=== PATIENT | male | born 2000 | race Caucasian/White ===

== ENCOUNTER 2024-06-08 20:33 | Emergency (ER) | payer MEDICARE, MEDICAID, SELFPAY ==
--- NOTE | 2024-06-08 20:52 | ED.GENADUL_ITS ---
Discharge Plan Disposition Patient Disposition: Psychiatric Hospital/Unit Condition: Stable Discharge Details Clinical Impression: Suicidal ideations, Hallucinations Primary Care Provider: [facility] ED Provider: Constance López Home Meds and New Rx's Prescriptions: No Action amlodipine 10 mg tablet 10 mg PO DAILY azathioprine 50 mg tablet 200 mg PO DAILY irbesartan 150 mg tablet 150 mg PO DAILY hydroxychloroquine 200 mg tablet 200 mg PO BID HPI General Date/Time Provider Initiated Documentation: 06/08/24 20:33 . HPI Narrative: The patient is a 24-year-old female with a history of lupus, chronic kidney disease who comes emergency department for medical clearance for mental health evaluation. The patient reports that she has been hearing voices and seeing things telling her to hurt herself and other people. Reports today she thought about cutting herself but had not attempted to harm herself or anybody else. Reports that she is having active suicidal thoughts. Denies having any plan and how she is going to carry through. Reports she was encouraged by her partner to call for help which is why she is in the emergency department today. Reports that she has been noncompliant with her medication and takes it sporadically but had taken her medications today. Reports she has had decreased urine output but not new today. Admits also that she has been dizzy on and off but again also not new today. Denies chest pain or shortness of breath. Denies fevers or chills. Denies abdominal pain, nausea or vomiting. Related Data Home Medications ?Medication ?Instructions ?Recorded ?Confirmed amlodipine 10 mg tablet 10 mg PO DAILY 06/08/24 06/08/24 azathioprine 50 mg tablet 200 mg PO DAILY 06/08/24 06/08/24 hydroxychloroquine 200 mg tablet 200 mg PO BID 06/08/24 06/08/24 irbesartan 150 mg tablet 150 mg PO DAILY 06/08/24 06/08/24 Review of Systems Narrative: Review of systems are negative except as mentioned. Exam Narrative Exam Narrative: The patient is in no acute distress. Pupils are round, equal and reactive. Oral mucosal membranes are moist. Heart is regular in rate and rhythm. Lungs are clear to auscultation bilaterally. The abdomen is soft with normal bowel sounds and no tenderness is noted to palpation throughout. No CVA tenderness is noted to palpation bilaterally. No lower extremity edema noted. Medical Decision Making Because of past medical history and poor compliance with medication the patient needs blood work, etc. for medical clearance. Patient agrees to this. Blood work and toxicologic screen are resulted and they are unremarkable. Her creatinine is elevated and I do not have anything old to compare this with but GFR is reassuring. At this point the patient is medically cleared. Quality:SDOH Health Related Social Needs: No Data to Display PFSH All Active Problems (Updated 06/08/24 @ 22:17 by Constance López DO) Hallucinations (Acute) Suicidal ideations (Acute) Social History Smoking/Tobacco Use Status: Current-Occasional Tobacco Type: cigarettes Smoking risk assessment performed?: Yes Alcohol Intake: former Drug use: Never Substance use type: does not use Housing: apartment Do you feel safe at home: Yes Do you feel safe in your relationship?: Yes Additional Social history: fianc? currently incarcerated
[2024-06-08 21:13] LABS: Abs Immature Grans 0.01 10^3/uL (0.0-0.06); Absolute Basophil Count 0.03 10^3/uL (0.0-0.2); Absolute Eosinophil Count 0.14 10^3/uL (0.0-0.7); Absolute Lymphocyte Count 2.31 10^3/uL (1.2-3.4); Absolute Monocyte Count 0.67 10^3/uL (0.1-0.8); Absolute Neutrophil Count 4.22 10^3/uL (1.2-6.7); Basophils % 0.4 %; Eosinophils % 1.9 %; HCT 45.5 % (40.0-50.0); HGB 15.7 g/dL (13.5-17.5); Immature Grans % 0.1 %; Lymphocytes % 31.3 %; MCHC 34.5 % (32.0-36.0); MCV 90 fL (80-95); MPV 9.4 fL (8.0-11.0); Monocytes % 9.1 %; Neutrophils % 57.2 %; Platelet Count 271 10^3/uL (130-400); RBC 5.07 10^6/uL (4.36-5.78); RDW 12.7 % (11.8-14.1); RDW-SD 41.2 fL; WBC 7.38 10^3/uL (4.4-10.8)
[2024-06-08 21:20] VITALS: BP 122/76; PULSE 64; RESP 16; TEMP 36.8; O2SAT 98
[2024-06-08 21:26] LABS: ALT 23 U/L (16-63); AST 17 U/L (15-37); Alkaline Phosphatase 93 U/L (46-116); Anion Gap 9.8 mmol/L (3-11); BUN 16 mg/dL (7-18); Bilirubin, Total 0.56 mg/dL (0.2-1.0); CO2 25.2 mmol/L (21.0-32.0); CREATININE 1.5 mg/dL (0.70-1.30); Calcium 8.7 mg/dL (8.5-10.1); Chloride 107 mmol/L (98-107); Estimated GFR 65.44 (mL/min/1.73m2); Glucose 97 mg/dL (74-106); Potassium 4.2 mmol/L (3.5-5.1); Sodium 142 mmol/L (136-145); Total Protein 7.1 g/dL (6.4-8.2)
[2024-06-08 21:40] LABS: Bilirubin Negative (Negative); Blood Negative (Negative); Clarity Clear (Clear); Glucose Negative (Negative); Ketones Negative (Negative); Leukocyte Esterase Trace (Negative); Nitrite Negative (Negative); Specific Gravity >= 1.030 (1.005-1.025); Urobilinogen 0.2 mg/dL (Up to 0.2); pH 5.5 (5-8)
[2024-06-08 21:44] LABS: Bacteria Few HPF (Negative); C & S Indicated? No/Sq. Contamination; Casts Negative LPF (Negative); Crystals Negative HPF (Negative); Epithelial Cells Moderate HPF (Negative); Mucus Negative (Negative); RBC Negative HPF (0-2)
[2024-06-08 21:48] LABS: *AMPHETAMINES SCREEN URINE Negative (Negative); *BARBITURATES SCREEN URINE Negative (Negative); *BENZODIAZEPINES SCREEN URINE Negative (Negative); Cannabinoids THC Negative (Negative); Cocaine Screen,Urine Negative (Negative); METHADONE URINE SCREEN Negative (Negative); OPIATES URINE SCREEN Negative (Negative)
[2024-06-08 21:55] LABS: ETHANOL BLOOD < 3.0 mg/dL (<10)
[2024-06-08 21:56] LABS: Tricyclic Antidepressants Negative (Negative)
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
--- NOTE | 2024-06-08 23:26 | W.EDPROG ---
Date of service: 06/08/24 Time of Service: 23:26 Medical Decision Making This patient was signed out to me. Please see previous notes for H&P and initial eval. In brief, 24yo transgender woman presenting for SI with plan to OD. Medically cleared, signed out pending voluntary inpatient placement. Ordered serum toxicology given report plan for OD (though pt denies attempt; negative. Overnight appeared to be sleeping; did not wake patient for assessment. Will be signed out to oncoming physician, plan remains as above. Quality:SDOH Health Related Social Needs: No Data to Display Discharge Plan Disposition Patient Disposition: Psychiatric Hospital/Unit Condition: Stable Discharge Details Clinical Impression: Suicidal ideations, Hallucinations Primary Care Provider: [facility] ED Provider: Carlie Gregory Home Meds and New Rx's Prescriptions: No Action amlodipine 10 mg tablet 10 mg PO DAILY azathioprine 50 mg tablet 200 mg PO DAILY irbesartan 150 mg tablet 150 mg PO DAILY hydroxychloroquine 200 mg tablet 200 mg PO BID
[2024-06-08 23:48] LABS: Salicylate < 2.8 mg/dL (<2.8)
[2024-06-08 23:55] LABS: Acetaminophen < 2 ug/mL (10-30)
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
[2024-06-09 07:30] VITALS: BP 128/86; PULSE 82; TEMP 36; O2SAT 99
--- NOTE | 2024-06-09 07:39 | W.EDPROG ---
Date of service: 06/09/24 Time of Service: 07:39 Medical Decision Making Patient seeking voluntary placement for thoughts of self-harm, no reported issues on prior shift, patient currently states she has a history of acid reflux and would like omeprazole which she takes normally, I have ordered for this. Will continue to monitor until safe disposition found. Quality:SDOH Health Related Social Needs: No Data to Display Sign Out Sign Out Data: Sign Out Comment: 24yo MTF transgendered woman presenting with SI, plan to OD. Medically cleared, pending voluntary placement. Last updated by Carlie Gregory MD at 06/09/24 05:36 Discharge Plan Disposition Patient Disposition: Psychiatric Hospital/Unit Condition: Stable Discharge Details Clinical Impression: Suicidal ideations, Hallucinations Primary Care Provider: [facility] ED Provider: Clifford Ugalde [place] Meds and New Rx's Prescriptions: No Action amlodipine 10 mg tablet 10 mg PO DAILY azathioprine 50 mg tablet 200 mg PO DAILY irbesartan 150 mg tablet 150 mg PO DAILY hydroxychloroquine 200 mg tablet 200 mg PO BID
[2024-06-09] MEDS: Omeprazole 20 MG CAPCR PO (07:43)
--- NOTE | 2024-06-09 08:34 | PDOC.CMSAFE ---
Date of service: 06/09/24 Time of Service: 08:34 Care Management Safety Plan Status Status: Voluntary Reason for Wait Reason for Wait: Inpatient Admission (Awaiting safe discharge, seeking inpatient psych treatment ) Safety Plan Safety Plan: VOLUNTARY FOR INPATIENT PSYCHIATRIC STABILIZATION. Patient is appropriate in all interactions since arriving at [facility]; Pt has demonstrated appropriate coping and communication skills, has articulated his or her needs and concerns and is fully engaged during staff interactions. Safety plan has been established with patient, and care team, to adhere to patient goals, identify restrictions based on behavioral status, address nutrition, and determine allowed personal belongings, tools for hygiene and personal care. Determine level of activity including ambulation, level of supervision, visitors, and determine privileges based on behaviors and level of engagement by pt. CM coordinated interdepartmental huddle with RN Alarm Adjuster, primary RN and [facility] clinician. Christy has been appropriate in interaction and is pending inpatient psych treatment at an accepting facility. SAFETY PLAN: 1. Will remain on suicide precautions. In Paper Clothes 2. Will remain in room under direct supervision of one-on-one staff at all times provided by [employer]; CASIE, SENIOR MECHANICAL PROJECT MANAGER manager labor delivery. 3. May have paper cups, plates, finger foods as well as a cardboard spoon with which to eat meals. 4. Follow [facility] Management of the Admitted Behavioral Health Patient policy. 5. Comfort bath system only, shower permitted with escort at RN discretion. 6. No personal belongings-soft items permitted at RN discretion. 7. Visitors-none at this time. 8. Activities: soft cart items approved per RN discretion. 9. Bathroom privileges, without limitation in zone B 10. Phone: contact limited to family at this time, via cordless phone at RN discretion. 11. Due to VOLUNTARY status, if patient wishes to leave [facility], staff will contact [facility] Crisis Screener ([phone]) and On-Call Cutting Inspector ([phone]) as soon as possible. In the event of elopement, notify [facility] Police ([phone]). Patient is currently voluntarily at [facility] and seeking inpatient admission when a bed becomes available. [facility] [employer] will continue seeking placement. Please contact the Sap Specialist Cutting Inspector ([phone]) and [facility] Svp Business Development ([phone]) for any needed changes in the Safety Plan. Safety plan has been provided to interdepartmental care team.
--- NOTE | 2024-06-09 21:10 | PDOC.MHPN2 ---
Date of service: 06/09/24 Time of Service: 02:45 Mental Health Emergency Note Release [facility] release signed:: No Reason for Visit SI/Command AH In the last 2 weeks has the pt presented for ES prior to today?: Yes, presented at (Reassessment ) [facility] Impression Ct is a 24-year-old transgender female ([id number]) presenting at [facility] for reassessment while awaiting voluntary placement. Ct was oriented across all spheres and appeared disheveled. Ct reported active SI, rating it as a 7 on a 0?10 scale, and denied HI. Ct disclosed ongoing command hallucinations instructing harm to self and others. Ct stated, I feel the same as yesterday, and exhibited a flat affect throughout the encounter. Ct was minimally communicative, reporting that she had eaten, showered, and slept okay. Ct will remain at [facility] while awaiting voluntary placement. Plan/Disposition Recommended Disposition: Hospitalization (No beds available, ALL hospitals) facilities contacted. Plan: awaiting voluntary placement Reports/communication Outcome discussed with: ED/Personnel (Dr. Ugalde)
[2024-06-09 21:30] VITALS: BP 134/101; PULSE 79; RESP 18; TEMP 36.3; O2SAT 99
[2024-06-09] MEDS: Irbesartan 75 MG TAB 150 MG PO (22:03)
--- NOTE | 2024-06-10 06:14 | W.EDPROG ---
Date of service: 06/09/24 Time of Service: 22:15 Medical Decision Making This patient was signed out to me. Please see previous notes for H&P and initial eval. In brief, 24yo MTF transgender woman presenting for SI with plan to OD. Medically cleared, pending voluntary inpatient placement. Overnight no acute events. Will be signed out to oncoming physician, plan remains as above. Quality:SDOH Health Related Social Needs: No Data to Display Sign Out Sign Out Data: Sign Out Comment: 24yo MTF transgendered woman presenting with SI, plan to OD. Medically cleared, pending voluntary placement. Last updated by Carlie Gregory MD at 06/09/24 05:36 Sign Out Comment: Patient seeking voluntary placement for thoughts of self-harm, no issues during shift. Last updated by Clifford Ugalde MD at 06/09/24 16:10 Sign Out Comment: Voluntary placement, no issues throughout the shift. Depressed. Last updated by Brandt Smith DO at 06/09/24 22:04 Discharge Plan Disposition Patient Disposition: Psychiatric Hospital/Unit Condition: Stable Discharge Details Clinical Impression: Suicidal ideations, Hallucinations Primary Care Provider: [facility] ED Provider: Carlie Gregory Home Meds and New Rx's Prescriptions: No Action amlodipine 10 mg tablet 10 mg PO DAILY azathioprine 50 mg tablet 200 mg PO DAILY irbesartan 150 mg tablet 150 mg PO DAILY hydroxychloroquine 200 mg tablet 200 mg PO BID
--- NOTE | 2024-06-10 07:40 | W.EDPROG ---
Date of service: 06/10/24 Time of Service: 07:41 Medical Decision Making I received signout on this 24-year-old patient in the emergency department voluntarily in the setting of suicidal ideation. Patient is medically cleared. No active behavioral issues last shift. Will update documentation as clinically warranted and sign patient out to oncoming evening provider. 9:37 AM I [facility]. She requested a urine test which I ordered. She also advised that if patient wants to take irbesartan or azathioprine a.m. while at the retreat patient will need to bring that these meds as these are not available at the retreat. I will pass along this information to the patient's nurse Clifford. Will await for the nurse to nurse once a bed becomes available. 4:20 PM I signed transfer paperwork to have the [facility]. Quality:SDOH Health Related Social Needs: No Data to Display Sign Out Sign Out Data: Sign Out Comment: 24yo MTF transgendered woman presenting with SI, plan to OD. Medically cleared, pending voluntary placement. Last updated by Carlie Gregory MD at 06/09/24 05:36 Sign Out Comment: Patient seeking voluntary placement for thoughts of self-harm, no issues during shift. Last updated by Clifford Ugalde MD at 06/09/24 16:10 Sign Out Comment: Voluntary placement, no issues throughout the shift. Depressed. Last updated by Brandt Smith DO at 06/09/24 22:04 Sign Out Comment: 24yo MTF transgendered woman with SI, medically cleared, pending voluntary placement. No issues overnight. Last updated by Carlie Gregory MD at 06/10/24 07:16 Discharge Plan Disposition Patient Disposition: Psychiatric Hospital/Unit Condition: Stable Discharge Details Clinical Impression: Suicidal ideations, Hallucinations Primary Care Provider: [facility] ED Provider: Karri Arizmendi Home Meds and New Rx's Prescriptions: No Action amlodipine 10 mg tablet 10 mg PO DAILY azathioprine 50 mg tablet 200 mg PO DAILY irbesartan 150 mg tablet 150 mg PO DAILY hydroxychloroquine 200 mg tablet 200 mg PO BID Discharge Data Discharge Date/Time-TO BE ENTERED AT DEPARTURE: 06/10/24 18:11
[2024-06-10 07:44] VITALS: BP 142/92; PULSE 74; RESP 16; TEMP 36.1; O2SAT 97
[2024-06-10] MEDS: Omeprazole 20 MG CAPCR PO (08:34)
[2024-06-10] MEDS: amLODIPine 10 MG TAB PO (08:35)
[2024-06-10] MEDS: azaTHIOprine 50 MG TAB 200 MG PO (09:29)
[2024-06-10] MEDS: Hydroxychloroquine 200 MG TAB PO (09:29)
--- NOTE | 2024-06-10 17:40 | PDOC.CMSAFE ---
Date of service: 06/10/24 Time of Service: 17:40 Care Management Safety Plan Status Status: Voluntary Reason for Wait Reason for Wait: Inpatient Admission Safety Plan Safety Plan: VOLUNTARY FOR INPATIENT PSYCHIATRIC STABILIZATION. Patient is appropriate in all interactions since arriving at [facility]; Pt has demonstrated appropriate coping and communication skills, has articulated his or her needs and concerns and is fully engaged during staff interactions. Safety plan has been established with patient, and care team, to adhere to patient goals, identify restrictions based on behavioral status, address nutrition, and determine allowed personal belongings, tools for hygiene and personal care. Determine level of activity including ambulation, level of supervision, visitors, and determine privileges based on behaviors and level of engagement by pt. CM was informed that Christy was accepted at [facility], and that transport will arrive at approximately 6pm. No other concerns were noted by staff during huddle. SAFETY PLAN: 1. Will remain on suicide precautions. In Paper Clothes 2. Will remain in room under direct supervision of one-on-one staff at all times provided by [employer]; CASIE, COOK STARCH pony cylinder press operator. 3. May have paper cups, plates, finger foods as well as a cardboard spoon with which to eat meals. 4. Follow [facility] Management of the Admitted Behavioral Health Patient policy. 5. Comfort bath system only, shower permitted with escort at RN discretion. 6. No personal belongings-soft items permitted at RN discretion. 7. Visitors-none at this time. 8. Activities: soft cart items approved per RN discretion. 9. Bathroom privileges, without limitation in zone B 10. Phone: contact limited to family at this time, via cordless phone at RN discretion. 11. Due to VOLUNTARY status, if patient wishes to leave [facility], staff will contact [facility] Crisis Screener ([phone]) and On-Call Newspaper Columnist ([phone]) as soon as possible. In the event of elopement, notify [facility] Police ([phone]). Patient is currently voluntarily at [facility] and seeking inpatient admission when a bed becomes available. [facility] Frontline Cord Splicer will continue seeking placement. Please contact the Dean Of Students Newspaper Columnist ([phone]) and [facility] Cord Splicer ([phone]) for any needed changes in the Safety Plan. Safety plan has been provided to interdepartmental care team.
== END 2024-06-10 18:11 ==
PROVIDERS: Emergency Medicine; Student in an Organized Health Care Education/Training Program; Emergency Provider Emergency Medicine; PCP Family Medicine
DX: R44.3 Hallucinations, unspecified (principal); R45.851 Suicidal ideations
CPT/HCPCS: 00123; 80053; 80307; 96127; 99285; 80320; 80329; 81003; 81015; 84703; 85025; J7500

== ENCOUNTER 2024-09-27 21:22 | Emergency (ER) | payer MEDICARE, MEDICAID, SELFPAY ==
[2024-09-27 21:27] VITALS: BP 137/81; PULSE 84; RESP 22; TEMP 37; O2SAT 97
--- NOTE | 2024-09-27 21:27 | ED.GENADUL_ITS ---
Discharge Plan Discharge Details Chief Complaint: PsychEval Clinical Impression: Suicidal ideation, Auditory hallucination, Hallucination, visual Primary Care Provider: [facility] ED Provider: Brandt Smith Home Meds and New Rx's Prescriptions: No Action amlodipine 10 mg tablet 10 mg PO DAILY azathioprine 50 mg tablet 200 mg PO DAILY irbesartan 150 mg tablet 150 mg PO DAILY hydroxychloroquine 200 mg tablet 200 mg PO BID HPI General Date/Time Provider Initiated Documentation: 09/27/24 21:24 . HPI Narrative: 24-year-old female with a past medical history of PCOS, lupus with lupus glomerulonephritis, and a past medical history of psychosis, patient presents today for auditory visual hallucinations with suicidal ideations. Patient states it been going on for some time, patient states medications do not work for her. She states that she would end her life by taking a bunch of pills. She states that she sees various things that she knows are not there. She has no other complaints or modifying factors otherwise. She has been admitted for for these issues in the past at [facility]. No other complaints at this time. Patient denies IV or illicit drug use. Related Data Home Medications ?Medication ?Instructions ?Recorded ?Confirmed amlodipine 10 mg tablet 10 mg PO DAILY 06/08/24 06/08/24 azathioprine 50 mg tablet 200 mg PO DAILY 06/08/24 06/08/24 hydroxychloroquine 200 mg tablet 200 mg PO BID 06/08/24 06/08/24 irbesartan 150 mg tablet 150 mg PO DAILY 06/08/24 06/08/24 Allergies Allergy/AdvReac Type Severity Reaction Status Date / Time Penicillins Allergy Intermediate Skin Rash Verified 09/27/24 21:26 quetiapine (From Seroquel) AdvReac Unknown Unknown Verified 09/27/24 21:26 General DIAMOND: 2 Exam Narrative Exam Narrative: 1.Const: Well-nourished, Well-developed, appearing stated age 2.Eyes: PERRL, no conjunctival injection, and symmetrical lids. 3.ENT: Atraumatic external nose and ears. Moist MM. Neck: Symmetric, trachea midline, No thyromegaly. 4.CVS: +S1/S2, Peripheral pulses 2+ and equal in all extremities. Brisk capillary refill in all extremities. 5.RESP: Unlabored respiratory effort. Clear to auscultation bilaterally. No wheezes rales or rhonchi 6.GI: Soft, Nontender/Nondistended, No hepatosplenomegaly. No guarding or rebound. 7.MSK: Normocephalic/Atraumatic, Extremities w/o deformity or ttp No cyanosis or clubbing, Normal movement of all extremities 8.Skin: Warm, Dry. No rashes or lesions. 9.Neuro: lpn rn hospice II-XII grossly intact. Sensation grossly intact, no focal neurologic deficits. 10.Psych: (AAO) x3. Appropriate mood and affect Medical Decision Making 24-year-old female with a past medical history of PCOS, lupus with lupus glomerulonephritis, and a past medical history of psychosis, patient presents today for auditory visual hallucinations with suicidal ideations. Patient states it been going on for some time, patient states medications do not work for her. She states that she would end her life by taking a bunch of pills. She states that she sees various things that she knows are not there. She has no other complaints or modifying factors otherwise. She has been admitted for for these issues in the past at [facility]. No other complaints at this time. Patient denies IV or illicit drug use. Exam demonstrates well-appearing female, no acute distress, clear admission of suicidal ideations, plan, and auditory and visual hallucinations. Will medically clear, and plan for mental health assessment and medical clearance. Patient will be signed out to my colleague Dr. Burgess follow-up on labs. Quality:[facility] Health Related Social Needs: No Data to Display [facility] All Active Problems (Updated 09/27/24 @ 21:36 by Brandt Smith DO) Hallucination, visual (Acute) Auditory hallucination (Acute) Suicidal ideation (Acute) Social History Smoking/Tobacco Use Status: Current every day Tobacco Type: cigarettes Smoking risk assessment performed?: Yes Alcohol Intake: former Drug use: Never Substance use type: does not use Housing: apartment Do you feel safe at home: Yes Do you feel safe in your relationship?: Yes Additional Social history: fianc? currently incarcerated
[2024-09-27 21:59] LABS: Bilirubin Negative (Negative); Blood Trace-intact (Negative); Clarity Clear (Clear); Glucose Negative (Negative); Ketones Trace mg/dL (Negative); Leukocyte Esterase Negative (Negative); Nitrite Negative (Negative); Specific Gravity 1.015 (1.005-1.025); pH 5.5 (5-8)
[2024-09-27 22:07] LABS: Bacteria Negative HPF (Negative); C & S Indicated? No; Casts Negative LPF (Negative); Crystals Negative HPF (Negative); Epithelial Cells Negative HPF (Negative); Mucus Negative (Negative); Other Cells Negative (Negative); RBC Negative HPF (0-2); WBC Negative HPF (0-5)
[2024-09-27 22:11] LABS: *AMPHETAMINES SCREEN URINE Negative (Negative); *BARBITURATES SCREEN URINE Negative (Negative); *BENZODIAZEPINES SCREEN URINE Negative (Negative); Cannabinoids THC Negative (Negative); Cocaine Screen,Urine Negative (Negative); METHADONE URINE SCREEN Negative (Negative); OPIATES URINE SCREEN Negative (Negative); Tricyclic Antidepressants Negative (Negative)
[2024-09-27 22:24] LABS: Abs Immature Grans 0.02 10^3/uL (0.0-0.06); Absolute Basophil Count 0.04 10^3/uL (0.0-0.2); Absolute Eosinophil Count 0.16 10^3/uL (0.0-0.7); Absolute Lymphocyte Count 2.28 10^3/uL (1.2-3.4); Absolute Monocyte Count 0.59 10^3/uL (0.1-0.8); Basophils % 0.5 %; Eosinophils % 1.9 %; HCT 42.4 % (36.0-46.0); HGB 14.7 g/dL (11.2-15.7); Immature Grans % 0.2 %; Lymphocytes % 27.2 %; MCHC 34.7 % (32.0-36.0); MCV 90 fL (80-95); MPV 9.5 fL (8.0-11.0); Neutrophils % 63.2 %; Platelet Count 284 10^3/uL (130-400); RBC 4.74 10^6/uL (3.93-5.22); RDW 13.2 % (11.7-14.6); RDW-SD 42.9 fL; WBC 8.39 10^3/uL (4.4-10.8)
--- NOTE | 2024-09-27 22:45 | W.EDPROG ---
Date of service: 09/27/24 Time of Service: 22:45 Medical Decision Making This patient was signed out to me. Please see previous notes for H&P and initial eval. In brief, 24yo F with hx of psychosis presenting for hallucinations and SI with plan to OD. Signed out pending lab results for medical clearance and [facility] once medically cleared. Labs unremarkable. [facility] evaluated patient; recommended voluntary inpatient treatment. Telepsych consult placed for med reccs. Home meds ordered. Overnight no acute events. Will be signed out to oncoming physician, plan remains as above. Lab Data Lab results reviewed: Yes I reviewed the patient's lab results. Labs: Laboratory Tests Range/Units 09/27/24 09/27/24 21:26 22:14 WBC (4.4-10.8) 10^3/uL 8.39 RBC (3.93-5.22) 10^6/uL 4.74 Hgb (11.2-15.7) g/dL 14.7 Hct (36.0-46.0) % 42.4 MCV (80-95) fL 90 MCH (27.0-33.0) pg 31.0 MCHC (32.0-36.0) % 34.7 RDW (11.7-14.6) % 13.2 Plt Count (130-400) 10^3/uL 284 MPV (8.0-11.0) fL 9.5 Immature Gran % % 0.2 Neutrophils % % 63.2 Lymphocytes % % 27.2 Monocytes % % 7.0 Eosinophils % % 1.9 Basophils % % 0.5 Nucleated RBC % (0.0-0.3) % 0.0 Absolute Neutrophils (1.2-6.7) 10^3/uL 5.30 Absolute Lymphocytes (1.2-3.4) 10^3/uL 2.28 Absolute Monocytes (0.1-0.8) 10^3/uL 0.59 Absolute Eosinophils (0.0-0.7) 10^3/uL 0.16 Absolute Basophils (0.0-0.2) 10^3/uL 0.04 Sodium (136-145) mmol/L 142 Potassium (3.5-5.1) mmol/L 4.0 Chloride (98-107) mmol/L 107 Carbon Dioxide (21.0-32.0) mmol/L 29.5 Anion Gap (3-11) mmol/L 5.5 BUN (7-18) mg/dL 16 Creatinine (0.55-1.02) mg/dL 1.4 H Est GFR (CKD-EPI 2020) (mL/min/1.73m2) 53.21 Glucose (74-106) mg/dL 104 Calcium (8.5-10.1) mg/dL 8.5 Total Bilirubin (0.2-1.0) mg/dL 0.7 AST (15-37) U/L 20 ALT (14-59) U/L 28 Alkaline Phosphatase (46-116) U/L 103 Total Protein (6.4-8.2) g/dL 7.3 Albumin (3.4-5.0) g/dL 3.0 L TSH (0.36-3.74) uIU/mL 2.22 Urine Color (Yellow) Yellow Urine Clarity (Clear) Clear Urine pH (5-8) 5.5 Ur Specific [place] (1.005-1.025) 1.015 Urine Protein (Neg-Trace) mg/dL Negative Urine Ketones (Negative) mg/dL Trace H Urine Blood (Negative) Trace-intact H Urine Nitrite (Negative) Negative Urine Bilirubin (Negative) Negative Urine Urobilinogen (Up to 0.2) mg/dL 1.0 H Ur Leukocyte Esterase (Negative) Negative Urine RBC (0-2) HPF Negative Urine WBC (0-5) HPF Negative Ur Epithelial Cells (Negative) HPF Negative Urine Crystals (Negative) HPF Negative Urine Bacteria (Negative) HPF Negative Urine Casts (Negative) LPF Negative Urine Mucus (Negative) Negative Urine Other (Negative) Negative Ur Culture Indicated? No Urine Glucose (Negative) mg/dL Negative Salicylates (<2.8) mg/dL < 2.8 Urine Opiates Screen (Negative) Negative Urine Methadone Screen (Negative) Negative Acetaminophen (10-30) ug/mL < 2 Ur Barbiturates Screen (Negative) Negative Ur Tricyclics Screen (Negative) Negative Ur Amphetamines Screen (Negative) Negative U Benzodiazepines Scrn (Negative) Negative Urine Cocaine Screen (Negative) Negative Ur THC Screen (Negative) Negative Ethyl Alcohol (<10) mg/dL < 3.0 Quality:SDOH Health Related Social Needs: Health related social needs problems related to housing/economic circumstances (Z59.89), problems with daily activities (Z73.9), feeling lonely/isolated (Z60.8) Discharge Plan Discharge Details Chief Complaint: PsychEval Clinical Impression: Suicidal ideation, Auditory hallucination, Hallucination, visual Primary Care Provider: [facility] ED Provider: Carlie Gregory Home Meds and New Rx's Prescriptions: No Action amlodipine 10 mg tablet 10 mg PO DAILY azathioprine 50 mg tablet 200 mg PO DAILY irbesartan 150 mg tablet 150 mg PO DAILY hydroxychloroquine 200 mg tablet 400 mg PO BID
[2024-09-27 22:46] LABS: ALT 28 U/L (14-59); AST 20 U/L (15-37); Alkaline Phosphatase 103 U/L (46-116); Anion Gap 5.5 mmol/L (3-11); BUN 16 mg/dL (7-18); Bilirubin, Total 0.7 mg/dL (0.2-1.0); CO2 29.5 mmol/L (21.0-32.0); CREATININE 1.4 mg/dL (0.55-1.02); Calcium 8.5 mg/dL (8.5-10.1); Chloride 107 mmol/L (98-107); Estimated GFR 53.21 (mL/min/1.73m2); Glucose 104 mg/dL (74-106); Sodium 142 mmol/L (136-145); Total Protein 7.3 g/dL (6.4-8.2)
[2024-09-27 22:54] LABS: ETHANOL BLOOD < 3.0 mg/dL (<10); TSH (W/Ref FT4) 2.22 uIU/mL (0.36-3.74)
[2024-09-27 22:55] LABS: Acetaminophen < 2 ug/mL (10-30); Salicylate < 2.8 mg/dL (<2.8)
--- NOTE | 2024-09-28 01:28 | PDOC.MHCN ---
Date of service: 09/27/24 Time of Service: 23:20 PHQ-9 Over the last 2 weeks, how often have you been bothered by any of the following problems? 1. Little interest or pleasure in doing things: more than half the days 2. Feeling down, depressed, or hopeless: nearly every day 3. Trouble falling or staying asleep, or sleeping too much: nearly every day 4. Feeling tired or having little energy: nearly every day 5. Poor appetite or overeating: nearly every day 6. Feeling bad about yourself - or that you are a failure or have let yourself and your family down: nearly every day 7. Trouble concentrating on things, such as reading the newspaper or watching television: nearly every day 8. Moving or speaking so slowly that other people could have noticed? - Or the opposite - being so fidgety or restless that you have been moving around a lot more than usual: more than half the days 9. Thoughts that you would be better off or of hurting yourself in some way: nearly every day Total score: 25 If you checked off any problems, how difficult have these problems made it for you to do your work, take care of things at home, or get along with other people?: very difficult Source: Developed by Drs. Erick Olson, Carlotta Rios, Taras Castillo and colleagues, with an educational ricardo from [employer]. Suicide Severity Rate CSSRS Have you wished you were or wished you could go to sleep and not wake up?: Yes Have you actually had any thoughts of killing yourself?: Yes CSSRS2 Have you been thinking about how you might do this?: Yes Have you had these thoughts and had some intention of acting on them?: No Have you started to work out or worked out the details of how to kill yourself? Do you intend to carry out this plan?: Yes CSSRS3 Have you ever done anything, started to do anything or prepared to do anything to end your life?: Yes CSSRS4 Was this within the past three months?: Yes Screening Score Total Score: 8 Screening: Positive Mental Health Emergency Note Release [facility] release signed:: Yes Reason for Visit SI and hallucinations In the last 2 weeks has the pt presented for ES prior to today?: No Client Information Well Housed: Yes Non Suicidal Self Injury Current: No History: No Safety Risk/Harm to Self or Others Current Ideation to Harm Self or Others: Yes to self. Intent: yes, has intent. Plan: yes,has a plan. Risk: Does risk to harm exist?: yes. Risk: Moderate Risk Duty to warn indicated: No Asssessment/Mental Status Appearance: Disheveled Attitude: Cooperative and Friendly Behavior: Agitated Speech: Normal Affect: Cogruent with mood Mood: Irritable Thought process: Goal directed and Poverty of content Hallucinations: yes, Visual and Auditory Delusions: No Attention: Unremarkable Perception: Not impaired Orientation: Fully orientated Memory: Intact Insight: Fair Judgement: Poor Neurovegetative Symptoms Sleep: Increase Appetitie: No change Interests: Decrease Energy: Decrease Libido: Not applicable Substance Use: Do you use nicotine?: Yes Have you used substances in the last 7 days?: No Additional Issues: Assaultive/Threatening Behavior: No Medical Concerns: No Client engaged in active self harm w/weapon: No Threatening to run away: No Child reported abuse/neglect: No Voluntarily presenting for services: Yes Domestic violence is a concern: No Extreme Psychosis or extreme behavior is present: No Impression The client is a 24 year old biological female who resides in [facility]. The client presents with a disheveled appearance and is seen wearing blue paper scrubs in her hospital bed. Affect is congruent with mood. Client is cooperative and friendly with this clinician; they report their mood as irritable. Thought process appears goal directed, but often with a poverty of content. There are no delusions observed by this clinician. Client shows fair insight, as they recognize the need for treatment. Cognitive assessment reveals orientation to person, place and time with memory intact. The client reports going to [facility] for SI and hallucinations. When asked for details around what the hallucinations were the client stated places. This specification writer asked what places was she hallucinating. The client stated she was having visual and auditory hallucinations of a person telling her to stab people. The client did not give further information regarding her hallucinations and if their were certain individuals or just any person. The client reports she has been feeling irritable for the last 5 months since she has left [facility] and that she just has not been feeling right. The client reports feeling suicidal with the plan of overdosing on her medications, but with no intent at this moment in time. When the client was asked on a scale from zero to ten, with zero I won't do anything to end my life and ten being I will do anything possible to end my life, where would she rate herself. The client reported a six out of ten. The client denied HI and NSSI to this clinician. The client states although she feels suicidal she is worth more than I might feel. The client did report within the last month she has prepared with medications and how many pills it would take to end her life. The client does have access to medications and SHARPS within her apartment. The client rated a 25/27 on the PHQ-9 and rated 5/6 on the CSSRS. The client reported her needs as going to voluntary impatient treatment for her SI and hallucinations, but to also get on the right medications. Plan/Disposition Recommended Disposition: Hospitalization facilities contacted. Plan: The client will remain voluntary in the Zone B of the [facility] ED until placement is secured at a psychiatric hospital. The client will be assessed daily by ES until placement is secured. Facilities contacted if Applicable [place] Accepted, Pending review. Information Sent to [place]: Referral [facility] Accepted, Pending review. Information Sent to [facility]: Referral [facility] Accepted, Pending review. [facility] to [place]. Information Sent to [facility]: Referral [facility] Accepted, Pending review. Information Sent to [facility]: Referral [facility] Accepted, Pending review. Information Sent to [place]: Referral Reports/communication Outcome discussed with: ED/Personnel
--- NOTE | 2024-09-28 06:54 | W.EDPROG ---
Date of service: 09/28/24 Time of Service: 07:08 Medical Decision Making This is a 24-year-old female patient with history of lupus and PCOS presenting for suicidal ideation with a plan to overdose and jump off a bridge, as well as visual and auditory hallucinations. Prior to my taking over their care, the patient was medically cleared, and has been resting comfortably. They have met with the psychosocial rehabilitation counselor and we are awaiting final dispo. They have not required any additional medications for restraint or sedation. A telepsych consult is ordered, for purposes of medication recommendations. Their recommendations were still pending at the conclusion of my shift. I did provide the patient with Prilosec and Tums for management of GERD, and patient reports that she is only taking 200 mg twice daily of her hydroxychloroquine, dose adjusted. Remained hemodynamically appropriate, calm, cooperative, and comfortable while under my care. She was signed out to the oncoming provider prior to final disposition. Haritha Martinez MD Medical Records Medical records reviewed: Yes I reviewed the patient's medical records. Lab Data Lab results reviewed: Yes I reviewed the patient's lab results. Quality:SDOH Health Related Social Needs: Health related social needs problems related to housing/economic circumstances (Z59.89), problems with daily activities (Z73.9), feeling lonely/isolated (Z60.8) Discharge Plan Discharge Details Chief Complaint: PsychEval Clinical Impression: Suicidal ideation, Auditory hallucination, Hallucination, visual Primary Care Provider: [facility] ED Provider: Haritha Martinez Home Meds and New Rx's Prescriptions: No Action amlodipine 10 mg tablet 10 mg PO DAILY azathioprine 50 mg tablet 200 mg PO DAILY irbesartan 150 mg tablet 150 mg PO DAILY hydroxychloroquine 200 mg tablet 400 mg PO BID
[2024-09-28] MEDS: Irbesartan 75 MG TAB 150 MG PO (08:22)
[2024-09-28] MEDS: amLODIPine 10 MG TAB PO (08:22)
[2024-09-28] MEDS: azaTHIOprine 50 MG TAB 200 MG PO (08:22)
[2024-09-28 08:38] VITALS: BP 115/83; PULSE 80; RESP 20; TEMP 36.1; O2SAT 98
[2024-09-28] MEDS: Hydroxychloroquine 200 MG TAB PO ×2 (08:56→19:41)
--- NOTE | 2024-09-28 09:16 | CMSP_ITS ---
Date of service: 09/28/24 Time of Service: 09:16 Care Management Safety Plan Status Status: Voluntary Reason for Wait Reason for Wait: Inpatient Admission (The client will remain voluntary in the Zone B of the [facility] ED until placement is secured at a psychiatric hospital. The client will be assessed daily by ES until placement is secured.) Safety Plan Safety Plan: VOLUNTARY FOR INPATIENT PSYCHIATRIC STABILIZATION.? Patient is appropriate in all interactions since arriving at [facility]; Pt has demonstrated appropriate coping and communication skills and has articulated needs, concerns and is fully engaged during staff interactions. Safety plan has been established with patient, and care team, to adhere to patient goals, identify restrictions based on behavioral status, address nutrition, and determine allowed personal belongings, tools for hygiene and personal care. Determine level of activity including ambulation, level of supervision, visitors, and determine privileges based on behaviors and level of engagement by pt. CM coordinated huddle with RN section supervisor, ER provider, Primary RN and [facility]. No changes are made to this safety plan. Amadeo is reviewing, per [facility]. CM will follow. SAFETY PLAN: 1. Will remain on suicide precautions, in paper clothes 2. Will remain in Zone B under direct supervision of one-on-one staff at all times provided by [employer]; CASIE, DIRECTOR VOLUNTEER SERVICES multiple effect evaporator operator. 3. May have paper cups, plates, finger foods as well as a cardboard spoon with which to eat meals. 4. Follow [facility] Management of the Admitted Behavioral Health Patient policy. 5. Shower available in Zone B without restriction. 6. Personal belongings-soft items permitted at RN discretion. 7. Visitors, limited to RN discretion. 8. Activities: soft cart items approved per RN discretion. 9.? Bathroom available in Zone B without restriction. 10. Phone: incoming/outgoing calls limited to [facility] cordless phone at RN discretion. Due to VOLUNTARY status, if patient wishes to leave [facility], staff will contact [facility] Crisis Screener ([phone]) and Blood Bank Coordinator ([phone]) as soon as possible. In the event of elopement, notify [facility] Police ([phone]). Patient is currently voluntarily at [facility] and seeking inpatient admission when a bed becomes available. [facility] Frontline Bilingual Teacher Aide will continue seeking placement. Please contact the Blood Bank Coordinator ([phone]) and [facility] Bilingual Teacher Aide ([phone]) for any needed changes in the Safety Plan. Safety plan has been provided to interdepartmental care team.
--- NOTE | 2024-09-28 09:16 | PDOC.CMSAFE ---
Date of service: 09/28/24 Time of Service: 09:16 Care Management Safety Plan Status Status: Voluntary Reason for Wait Reason for Wait: Inpatient Admission (The client will remain voluntary in the Zone B of the [facility] ED until placement is secured at a psychiatric hospital. The client will be assessed daily by ES until placement is secured.) Safety Plan Safety Plan: VOLUNTARY FOR INPATIENT PSYCHIATRIC STABILIZATION.? Patient is appropriate in all interactions since arriving at [facility]; Pt has demonstrated appropriate coping and communication skills and has articulated needs, concerns and is fully engaged during staff interactions. Safety plan has been established with patient, and care team, to adhere to patient goals, identify restrictions based on behavioral status, address nutrition, and determine allowed personal belongings, tools for hygiene and personal care. Determine level of activity including ambulation, level of supervision, visitors, and determine privileges based on behaviors and level of engagement by pt. CM coordinated huddle with RN solar installation supervisor, ER provider, Primary RN and [facility]. No changes are made to this safety plan. Amadeo is reviewing, per [facility]. CM will follow. SAFETY PLAN: 1. Will remain on suicide precautions, in paper clothes 2. Will remain in Zone B under direct supervision of one-on-one staff at all times provided by [employer]; CASIE, WELDING R[employer]ATER stem threshing machine operator. 3. May have paper cups, plates, finger foods as well as a cardboard spoon with which to eat meals. 4. Follow [facility] Management of the Admitted Behavioral Health Patient policy. 5. Shower available in Zone B without restriction. 6. Personal belongings-soft items permitted at RN discretion. 7. Visitors, limited to RN discretion. 8. Activities: soft cart items approved per RN discretion. 9.? Bathroom available in Zone B without restriction. 10. Phone: incoming/outgoing calls limited to [facility] cordless phone at RN discretion. Due to VOLUNTARY status, if patient wishes to leave [facility], staff will contact [facility] Crisis Screener ([phone]) and Order Detailer ([phone]) as soon as possible. In the event of elopement, notify [facility] Police ([phone]). Patient is currently voluntarily at [facility] and seeking inpatient admission when a bed becomes available. [facility] Frontline Electrical Instrument Repairer will continue seeking placement. Please contact the Order Detailer ([phone]) and [facility] Electrical Instrument Repairer ([phone]) for any needed changes in the Safety Plan. Safety plan has been provided to interdepartmental care team.
[2024-09-28] MEDS: Omeprazole 20 MG CAPCR PO (13:10)
[2024-09-28] MEDS: Calcium Carbonate *TUMS* 500 MG CHEW PO (13:10)
--- NOTE | 2024-09-28 15:09 | MHPN_ITS ---
Date of service: 09/28/24 Time of Service: 15:13 Mental Health Emergency Note Release [facility] release signed:: Yes Reason for Visit The client presented to [facility] ED on via ambulance for SI. The client is known to [facility], but not this clinician. Per client report the client has been psychiatrically hospitalized multiple times since she was 16 years old. The client states the last time she was hospitalized was 5 months ago at [facility]. The client has a STATION INSPECTOR case managers through [facility] and last saw her on 09/27/24. In the last 2 weeks has the pt presented for ES prior to today?: Unknown Impression Client is a 24-year-old single female. Client lives alone in [place], [place]. She reports having no children. Client reports she was born in [place], [place] and has three sisters. Client reports her mother in 2018 and her father is still living. Client reports that she has been in and out of inpatient since I was 16.? All underrepresented identifiers were honored during this assessment. The client is observed lying in bed watching TV. She engages in the assessment and makes good eye contact. She reported her mood as okay stating that she is tired and has been struggling with depression, SI with auditory and visual hallucinations. She noted that he hallucinations are command in type telling her to hurt staff and to cut people up into pieces she could not elaborate what staff she was talking about. Shes stated that she believes she is bipolar however, is not diagnosed with this. She reported she is also diagnosed with kidney disease stage 3 and Jovana Nephritis stage 4. She stated that she gets irritated easily. She continues to seek voluntary placement. Plan/Disposition Recommended Disposition: Hospitalization facilities contacted. Plan: The client will remain at [facility] and be assessed daily until placed or she is safe to return home. Person reported agreement to plan: Yes Reports/communication Outcome discussed with: ED/Personnel
[2024-09-28] MEDS: Polyethylene Glycol 3350 17 GM PACKET PO (19:41)
--- NOTE | 2024-09-28 20:26 | ED.PROG_ITS ---
Date of service: 09/28/24 Time of Service: 20:26 Medical Decision Making Care assumed from outgoing provider. Patient is currently pending voluntary inpatient psychiatric placement for management of suicidal ideation with plan. No issues during shift. Medically cleared, pending placement. Quality:SDOH Health Related Social Needs: Health related social needs problems related to housin g/economic circumstances (Z59.89), problems with daily activities (Z73.9), feeling lonely/isolated (Z60.8) Discharge Plan Discharge Details Chief Complaint: PsychEval Clinical Impression: Suicidal ideation, Auditory hallucination, Hallucination, visual Primary Care Provider: [facility] ED Provider: Phi Vivar Home Meds and New Rx's Prescriptions: No Action amlodipine 10 mg tablet 10 mg PO DAILY azathioprine 50 mg tablet 200 mg PO DAILY irbesartan 150 mg tablet 150 mg PO DAILY hydroxychloroquine 200 mg tablet 400 mg PO BID
--- NOTE | 2024-09-28 23:17 | ED.PROG_ITS ---
Date of service: 09/28/24 Time of Service: 23:17 Medical Decision Making This patient was signed out to me. Please see previous notes for H&P and initial eval. In brief, 24yo F with hx of psychosis presenting for hallucinations and SI with plan to OD. Medically cleared, pending voluntary placement. Overnight no acute events. Will be signed out to oncoming physician, plan remains as above. Quality:SDOH Health Related Social Needs: Health related social needs problems related to housin g/economic circumstances (Z59.89), problems with daily activities (Z73.9), feeling lonely/isolated (Z60.8) Discharge Plan Discharge Details Chief Complaint: PsychEval Clinical Impression: Suicidal ideation, Auditory hallucination, Hallucination, visual Primary Care Provider: [facility] [facility] ED Provider: Carlie Gregory Home Meds and New Rx's Prescriptions: No Action amlodipine 10 mg tablet 10 mg PO DAILY azathioprine 50 mg tablet 200 mg PO DAILY irbesartan 150 mg tablet 150 mg PO DAILY hydroxychloroquine 200 mg tablet 400 mg PO BID
--- NOTE | 2024-09-29 07:02 | ED.PROG_ITS ---
Date of service: 09/29/24 Time of Service: 07:02 Medical Decision Making In brief, this is a 24-year-old female patient boarding in our emergency department awaiting placement for suicidal ideation with a plan to overdose and jump off a bridge. Prior to my taking over their care, the patient was medically cleared, and has been resting comfortably. They have met with the social media marketing specialist and we are awaiting final dispo. They have not required any additional medications for restraint or sedation. Anticipate potential availability of beds at [facility] as early as 09/30. Signed out to the oncoming provider prior to final disposition. Remained hemodynamically appropriate, calm, cooperative, and comfortable while under my care. Haritha Martinez MD Medical Records Medical records reviewed: Yes I reviewed the patient's medical records. Lab Data Lab results reviewed: Yes I reviewed the patient's lab results. Quality:SDOH Health Related Social Needs: Health related social needs problems related to housin g/economic circumstances (Z59.89), problems with daily activities (Z73.9), feeling lonely/isolated (Z60.8) Discharge Plan Discharge Details Chief Complaint: PsychEval Clinical Impression: Suicidal ideation, Auditory hallucination, Hallucination, visual Primary Care Provider: [facility] [facility] ED Provider: Haritha Martinez Home Meds and New Rx's Prescriptions: No Action amlodipine 10 mg tablet 10 mg PO DAILY azathioprine 50 mg tablet 200 mg PO DAILY irbesartan 150 mg tablet 150 mg PO DAILY hydroxychloroquine 200 mg tablet 400 mg PO BID
--- NOTE | 2024-09-29 09:07 | CMSP_ITS ---
Date of service: 09/29/24 Time of Service: 09:07 Care Management Safety Plan Status Status: Voluntary Reason for Wait Reason for Wait: Inpatient Admission (Awaiting inpatient psychiatric treatment ) Safety Plan Safety Plan: VOLUNTARY FOR INPATIENT PSYCHIATRIC STABILIZATION.? Patient is appropriate in all interactions since arriving at [facility]; Pt has demonstrated appropriate coping and communication skills and has articulated needs, concerns and is fully engaged during staff interactions. Safety plan has been established with patient, and care team, to adhere to patient goals, identify restrictions based on behavioral status, address nutrition, and determine allowed personal belongings, tools for hygiene and personal care. Determine level of activity including ambulation, level of supervision, visitors, and determine privileges based on behaviors and level of engagement by pt. CM coordinated huddle with RN supervisor laundry, ER provider, Primary RN and [facility]. No changes are made to this safety plan. Amadeo is reviewing, per [facility]. CM will follow. SAFETY PLAN: 1. Will remain on suicide precautions, in paper clothes 2. Will remain in Zone B under direct supervision of one-on-one staff at all times provided by [employer]; CASIE, COMPOUND MACHINE OPERATOR customer support executive. 3. May have paper cups, plates, finger foods as well as a cardboard spoon with which to eat meals. 4. Follow [facility] Management of the Admitted Behavioral Health Patient policy. 5. Shower available in Zone B without restriction. 6. Personal belongings-soft items permitted at RN discretion. 7. Visitors, limited to RN discretion. 8. Activities: soft cart items approved per RN discretion. 9.? Bathroom available in Zone B without restriction. 10. Phone: incoming/outgoing calls limited to [facility] cordless phone at RN discretion. Due to VOLUNTARY status, if patient wishes to leave [facility], staff will contact [facility] Crisis Screener ([phone]) and Contracting Manager ([phone]) as soon as possible. In the event of elopement, notify [facility] Police ([phone]). Patient is currently voluntarily at [facility] and seeking inpatient admission when a bed becomes available. [facility] Frontline Film Library Clerk will continue seeking placement. Please contact the Contracting Manager ([phone]) and [facility] Film Library Clerk ([phone]) for any needed changes in the Safety Plan. Safety plan has been provided to interdepartmental care team.
--- NOTE | 2024-09-29 09:07 | PDOC.CMSAFE ---
Date of service: 09/29/24 Time of Service: 09:07 Care Management Safety Plan Status Status: Voluntary Reason for Wait Reason for Wait: Inpatient Admission (Awaiting inpatient psychiatric treatment ) Safety Plan Safety Plan: VOLUNTARY FOR INPATIENT PSYCHIATRIC STABILIZATION.? Patient is appropriate in all interactions since arriving at [facility]; Pt has demonstrated appropriate coping and communication skills and has articulated needs, concerns and is fully engaged during staff interactions. Safety plan has been established with patient, and care team, to adhere to patient goals, identify restrictions based on behavioral status, address nutrition, and determine allowed personal belongings, tools for hygiene and personal care. Determine level of activity including ambulation, level of supervision, visitors, and determine privileges based on behaviors and level of engagement by pt. CM coordinated huddle with RN pricing supervisor, ER provider, Primary RN and [facility]. No changes are made to this safety plan. Amadeo is reviewing, per [facility]. CM will follow. SAFETY PLAN: 1. Will remain on suicide precautions, in paper clothes 2. Will remain in Zone B under direct supervision of one-on-one staff at all times provided by [employer]; CASIE, MOLD SHIFTER vocational ed instructor. 3. May have paper cups, plates, finger foods as well as a cardboard spoon with which to eat meals. 4. Follow [facility] Management of the Admitted Behavioral Health Patient policy. 5. Shower available in Zone B without restriction. 6. Personal belongings-soft items permitted at RN discretion. 7. Visitors, limited to RN discretion. 8. Activities: soft cart items approved per RN discretion. 9.? Bathroom available in Zone B without restriction. 10. Phone: incoming/outgoing calls limited to [facility] cordless phone at RN discretion. Due to VOLUNTARY status, if patient wishes to leave [facility], staff will contact [facility] Crisis Screener ([phone]) and Central Office Worker ([phone]) as soon as possible. In the event of elopement, notify [facility] Police ([phone]). Patient is currently voluntarily at [facility] and seeking inpatient admission when a bed becomes available. [facility] Frontline Grocery Clerk will continue seeking placement. Please contact the Central Office Worker ([phone]) and [facility] Grocery Clerk ([phone]) for any needed changes in the Safety Plan. Safety plan has been provided to interdepartmental care team.
[2024-09-29 09:33] VITALS: BP 123/88; PULSE 89; TEMP 35.6; O2SAT 98
[2024-09-29] MEDS: amLODIPine 10 MG TAB PO (09:44)
[2024-09-29] MEDS: azaTHIOprine 50 MG TAB 200 MG PO (09:45)
[2024-09-29] MEDS: Hydroxychloroquine 200 MG TAB PO ×2 (09:45→19:43)
[2024-09-29] MEDS: Polyethylene Glycol 3350 17 GM PACKET PO (09:45)
[2024-09-29] MEDS: Omeprazole 20 MG CAPCR PO (09:45)
[2024-09-29] MEDS: Irbesartan 75 MG TAB 150 MG PO (09:45)
--- NOTE | 2024-09-29 15:23 | MHPN_ITS ---
Date of service: 09/29/24 Time of Service: 15:23 Mental Health Emergency Note Release [facility] release signed:: Yes Reason for Visit The client presented to [facility] ED on via ambulance for SI. The client is known to [facility], but not this clinician. Per client report the client has been psychiatrically hospitalized multiple times since she was 16 years old. The client states the last time she was hospitalized was 5 months ago at [facility]. The client has a HEAD GREASE MAKER registered nurse hh case manager through [facility] and last saw her on 09/27/24. This assessment is completed face to face. In the last 2 weeks has the pt presented for ES prior to today?: Unknown Impression Client is a 24-year-old single female. Client lives alone in [place], [place]. She reports having no children. Client reports she was born in [place], [place] and has three sisters. Client reports her mother in 2018 and her father is still living. Client reports that she has been in and out of inpatient since I was 16. All underrepresented identifiers were honored during this assessment. The client is observed lying in bed watching TV. She reports no change in her mood from yesterday. She stated she is just trying to stay calm and not hurt anyone. She is also still endorsing SI. She reported poor sleep but is eating fine. We discussed tools to help with coping and she was interested in coloring and fidgets which were given to her. Additionally, she was asked about possible bed availability for tomorrow and shared she identifies as bisexual so this clinician will outreach to to update them. Plan/Disposition Recommended Disposition: Hospitalization facilities contacted. Plan: The client will remain at the ED pending acceptance. Her medical clearance was re-faxed to [facility]. Reports/communication Outcome discussed with: ED/Personnel
[2024-09-29] MEDS: Acetaminophen 325 MG TAB 650 MG PO (17:13)
[2024-09-29] MEDS: Pregabalin 100 MG CAP PO (21:45)
--- NOTE | 2024-09-29 22:55 | ED.PROG_ITS ---
Date of service: 09/29/24 Time of Service: 22:55 Medical Decision Making Care assumed from off going provider. Patient is currently pending voluntary inpatient psychiatric placement for suicidal ideation. Has been complaining of some hip pain during this shift and some as needed medications have been provid ed. Quality:[facility] Health Related Social Needs: Health related social needs problems related to housin g/economic c ircumstances (Z59.89), problems with daily activities (Z73.9), feeling lonely/isolated (Z60.8) Discharge Plan Disposition Patient Disposition: Psychiatric Hospital/Unit Specific Psychiatric Facility: Other Discharge Details Chief Complaint: PsychEval Clinical Impression: Suicidal ideation, Auditory hallucination, Hallucination, visual Primary Care Provider: [facility] ED Provider: Phi Vivar Home Meds and New Rx's Prescriptions: No Action amlodipine 10 mg tablet 10 mg PO DAILY azathioprine 50 mg tablet 200 mg PO DAILY irbesartan 150 mg tablet 150 mg PO DAILY hydroxychloroquine 200 mg tablet 400 mg PO BID
--- NOTE | 2024-09-29 23:57 | ED.PROG_ITS ---
Date of service: 09/29/24 Time of Service: 23:57 Medical Decision Making This patient was signed out to me. Please see previous notes for H&P and initial eval. In brief, 24yo F with hx of psychosis presenting for hallucinations and SI with plan to OD. Medically cleared, pending voluntary placement. Overnight no acute events. Will be signed out to oncoming physician, plan remains as above. Quality:SDOH Health Related Social Needs: Health related social needs problems related to housin g/economic circumstances (Z59.89), problems with daily activities (Z73.9), feeling lonely/isolated (Z60.8) Discharge Plan Disposition Patient Disposition: Psychiatric Hospital/Unit Specific Psychiatric Facility: Other Discharge Details Clinical Impression: Suicidal ideation, Auditory hallucination, Hallucination, visual Primary Care Provider: [facility] ED Provider: Carlie Gregory Home Meds and New Rx's Prescriptions: No Action amlodipine 10 mg tablet 10 mg PO DAILY azathioprine 50 mg tablet 200 mg PO DAILY irbesartan 150 mg tablet 150 mg PO DAILY hydroxychloroquine 200 mg tablet 400 mg PO BID
--- NOTE | 2024-09-30 07:52 | ED.PROG_ITS ---
Date of service: 09/30/24 Time of Service: 07:53 Medical Decision Making Patient currently seeking voluntary placement for thoughts of self-harm. No reported issues on prior shift and currently no new acute complaints. Will continue to monitor until safe disposition found Quality:SDOH Health Related Social Needs: Health related social needs problems related to housin g/economic circumstances (Z59.89), problems with daily activities (Z73.9), feeling lonely/isolated (Z60.8) Discharge Plan Disposition Patient Disposition: Psychiatric Hospital/Unit Specific Psychiatric Facility: Other Discharge Details Clinical Impression: Suicidal ideation, Auditory hallucination, Hallucination, visual Primary Care Provider: [facility] ED Provider: Clifford Ugalde [place] Meds and New Rx's Prescriptions: No Action amlodipine 10 mg tablet 10 mg PO DAILY azathioprine 50 mg tablet 200 mg PO DAILY irbesartan 150 mg tablet 150 mg PO DAILY hydroxychloroquine 200 mg tablet 400 mg PO BID
[2024-09-30] MEDS: azaTHIOprine 50 MG TAB 200 MG PO (09:48)
[2024-09-30] MEDS: Hydroxychloroquine 200 MG TAB PO (09:48)
[2024-09-30] MEDS: amLODIPine 10 MG TAB PO (09:48)
[2024-09-30] MEDS: Omeprazole 20 MG CAPCR PO (09:48)
[2024-09-30] MEDS: Irbesartan 75 MG TAB 150 MG PO (09:48)
[2024-09-30] MEDS: Polyethylene Glycol 3350 17 GM PACKET PO (09:49)
[2024-09-30 12:12] VITALS: BP 123/88; PULSE 90; RESP 16; TEMP 36.6; O2SAT 98
--- NOTE | 2024-09-30 12:31 | NUR.NOTE ---
Patient left department with [facility] [place] [facility]. Patient changed her clothing to regular clothing prior to leaving. Patient also had lunch prior to leaving
== END 2024-09-30 12:18 ==
PROVIDERS: Student in an Organized Health Care Education/Training Program; Emergency Provider Emergency Medicine; PCP Family Medicine
DX: R45.851 Suicidal ideations (principal); R44.0 Auditory hallucinations; R44.1 Visual hallucinations; M32.14 Glomerular disease in systemic lupus erythematosus; E28.2 Polycystic ovarian syndrome; F17.210 Nicotine dependence, cigarettes, uncomplicated
CPT/HCPCS: 00123; 80053; 80307; 81025; 96127; 99283; 80320; 80329; 81003; 81015; 84443; 85025; J7500

== ENCOUNTER 2024-11-07 12:04 | Emergency (ER) | payer MEDICARE, MEDICAID, SELFPAY ==
[2024-11-07 12:09] VITALS: BP 151/94; PULSE 112; RESP 16; TEMP 36.6; O2SAT 98
--- NOTE | 2024-11-07 12:32 | W.ED.GENAD ---
Discharge Plan Disposition Condition: Stable Discharge Details Chief Complaint: PsychEval Clinical Impression: Depression Primary Care Provider: [facility] [facility] ED Provider: Clifford Ugalde Home Meds and New Rx's Prescriptions: Continued azathioprine 50 mg tablet 200 mg PO DAILY irbesartan 150 mg tablet 150 mg PO DAILY hydroxychloroquine 200 mg tablet 200 mg PO DAILY No Action amlodipine 5 mg tablet 5 mg PO DAILY Patient Comments: TAKE ONE TABLET BY MOUTH EVERY DAY Discharge Instructions Additional Instructions: Follow-up with your primary care provider and mental health providers. Continue to take your prescribed medications. If you feel more ill or have worsening thoughts of self-harm return to the emergency department for reevaluation. HPI General Mode of arrival: ambulatory. Date/Time Provider Initiated Documentation: 11/07/24 12:06. Limitations to Documentation: no limitations. Information obtained by: patient. History of Present Illness 24 year old F presents to the emergency department with the chief complaint of Hallucinations and voices telling her to hurt herself, described as moderate, Patient started experiencing this month(s) (1) and it has been constant. No relieving factors improve symptom(s), No exacerbating factors reported . Patient notes no other symptoms.. Patient did receive the following treatments prior to arrival, none Related Data Home Medications ?Medication ?Instructions ?Recorded ?Confirmed azathioprine 50 mg tablet 200 mg PO DAILY 06/08/24 11/07/24 hydroxychloroquine 200 mg tablet 200 mg PO DAILY 06/08/24 11/07/24 irbesartan 150 mg tablet 150 mg PO DAILY 06/08/24 11/07/24 amlodipine 5 mg tablet 5 mg PO DAILY 11/07/24 11/07/24 Allergies Allergy/AdvReac Type Severity Reaction Status Date / Time Penicillins Allergy Intermediate Skin Rash Verified 11/07/24 12:12 quetiapine (From Seroquel) AdvReac Unknown Unknown Verified 11/07/24 12:12 General Stated Complaint: PsychEval DIAMOND: 2 Review of Systems All systems reviewed & are unremarkable except as noted in HPI and below Constitutional Constitutional: Denies chills and Denies fever(s) ENT Ears, Nose, Mouth, and Throat: Denies change in voice Cardiovascular Cardiovascular: Denies chest pain and Denies dyspnea Respiratory Respiratory: Denies cough and Denies dyspnea Gastrointestinal Gastrointestinal: Denies abdominal pain, Denies nausea and Denies vomiting Psychiatric Psychiatric: Reports depression Exam Const General: no acute distress Orientation: alert HENMT Head: normal to inspection Ears: external ears normal General nose exam: external nose normal Mouth: moist mucous membranes Eyes General: appearance normal, both eyes and all related structures Neck Neck: normal visual inspection Resp Effort & Inspection: normal respiratory effort and able to speak in complete sentences Cardio Rate: regular rate Skin General skin exam: no rashes or lesions noted Neuro General: patient alert and patient oriented x3 Extrem General: normal to inspection Psych Appearance: well kempt Speech and Movement: speech and movement normal Course Vital Signs Vital signs: Vital Signs Temperature 36.6 C 11/07/24 12:09 Pulse 112 H 11/07/24 12:09 Respiratory Rate 16 11/07/24 12:09 Blood Pressure 151/94 H 11/07/24 12:09 Pulse Oximetry 98 11/07/24 12:09 Temperature 36.6 C 11/07/24 12:09 Pulse 112 H 11/07/24 12:09 Respiratory Rate 16 11/07/24 12:09 Blood Pressure 151/94 H 11/07/24 12:09 Pulse Oximetry 98 11/07/24 12:09 Pain Level 0 11/07/24 12:09 Medical Decision Making 24-year-old female with a history of lupus, PCOS and depression comes in with continued thoughts of self-harm and hears voices telling her to harm her self. She was seen here emergency attempt at Loc[facility] she states that she feels that she was released too early from there. She has not actually attempted any thing to harm her self. Denies any ingestions, denies drug use or alcohol use. She is ambulating with normal gait, is calm and cooperative and answering questions appropriately. Suspect this is related to her chronic psych issues, will check screening labs and have mental health evaluate. Patient seen by [facility] crisis screener and they already had a plan for her to go to the care bed at 4 PM. Patient is comfortable with this and will follow-up with her PCP and also outpatient mental health providers as needed. Patient has noticed that he does not feel safe going to the care bed, will have mental health reevaluate. Differential Diagnosis Differential Diagnosis: depression, schizophrenia Medical Records Medical records reviewed: Yes I reviewed the patient's medical records. Lab Data Lab results reviewed: Yes I reviewed the patient's lab results. Quality:SDOH Health Related Social Needs: Health related social needs problems related to housing/economic circumstances (Z59.89), problems with daily activities (Z73.9), feeling lonely/isolated (Z60.8) PFSH All Active Problems (Updated 11/07/24 @ 14:41 by Clifford Ugalde MD) Depression (Chronic) Social History Smoking/Tobacco Use Status: Current every day Tobacco Type: cigarettes Smoking risk assessment performed?: Yes Alcohol Intake: former Drug use: Never Substance use type: does not use Housing: apartment Do you feel safe at home: Yes Do you feel safe in your relationship?: Yes Additional Social history: fianc? currently incarcerated
[2024-11-07 12:59] LABS: Bilirubin Negative (Negative); Blood Trace-intact (Negative); Clarity Sl Cloudy (Clear); Glucose Negative (Negative); Ketones Negative (Negative); Leukocyte Esterase Moderate (Negative); Nitrite Negative (Negative); Specific Gravity 1.025 (1.005-1.025); Urobilinogen 0.2 mg/dL (Up to 0.2); pH 5.5 (5-8)
[2024-11-07 13:16] LABS: *AMPHETAMINES SCREEN URINE Negative (Negative); *BARBITURATES SCREEN URINE Negative (Negative); *BENZODIAZEPINES SCREEN URINE Negative (Negative); Bacteria Moderate HPF (Negative); C & S Indicated? No/Sq. Contamination; Cannabinoids THC Negative (Negative); Casts Negative LPF (Negative); Cocaine Screen,Urine Negative (Negative); Crystals Negative HPF (Negative); Epithelial Cells Many HPF (Negative); METHADONE URINE SCREEN Negative (Negative); Mucus Trace (Negative); OPIATES URINE SCREEN Negative (Negative)
[2024-11-07 13:18] LABS: Tricyclic Antidepressants Negative (Negative)
[2024-11-07 13:19] LABS: Abs Immature Grans 0.02 10^3/uL (0.0-0.06); Absolute Basophil Count 0.03 10^3/uL (0.0-0.2); Absolute Eosinophil Count 0.14 10^3/uL (0.0-0.7); Absolute Lymphocyte Count 1.62 10^3/uL (1.2-3.4); Absolute Monocyte Count 0.66 10^3/uL (0.1-0.8); Absolute Neutrophil Count 5.05 10^3/uL (1.2-6.7); Basophils % 0.4 %; Eosinophils % 1.9 %; HCT 45.7 % (36.0-46.0); HGB 15.5 g/dL (11.2-15.7); Immature Grans % 0.3 %; Lymphocytes % 21.5 %; MCH 30.7 pg (27.0-33.0); MCHC 33.9 % (32.0-36.0); MCV 91 fL (80-95); MPV 9.6 fL (8.0-11.0); Monocytes % 8.8 %; Neutrophils % 67.1 %; Platelet Count 221 10^3/uL (130-400); RBC 5.05 10^6/uL (3.93-5.22); RDW 13.2 % (11.7-14.6); WBC 7.52 10^3/uL (4.4-10.8)
[2024-11-07 13:46] LABS: ALT 37 U/L (14-59); AST 24 U/L (15-37); Albumin 3.1 g/dL (3.4-5.0); Alkaline Phosphatase 103 U/L (46-116); Anion Gap 8.4 mmol/L (3-11); BUN 19 mg/dL (7-18); Bilirubin, Total 0.6 mg/dL (0.2-1.0); CO2 25.6 mmol/L (21.0-32.0); CREATININE 1.5 mg/dL (0.55-1.02); Calcium 9.3 mg/dL (8.5-10.1); Chloride 106 mmol/L (98-107); Estimated GFR 48.98 (mL/min/1.73m2); Glucose 146 mg/dL (74-106); Potassium 4.3 mmol/L (3.5-5.1); Sodium 140 mmol/L (136-145); TSH (W/Ref FT4) 1.75 uIU/mL (0.36-3.74); Total Protein 7.7 g/dL (6.4-8.2)
[2024-11-07 13:47] LABS: ETHANOL BLOOD < 3.0 mg/dL (<10)
[2024-11-07 13:52] LABS: Salicylate < 2.8 mg/dL (<2.8)
[2024-11-07 13:54] LABS: Acetaminophen < 2 ug/mL (10-30)
[2024-11-07] MEDS: Nicotine 4 MG GUM CH ×2 (14:16→16:40)
--- NOTE | 2024-11-07 15:06 | PDOC.MHCN_ITS ---
Date of service: 11/07/24 Time of Service: 01:15 PHQ-9 Over the last 2 weeks, how often have you been bothered by any of the following problems? 1. Little interest or pleasure in doing things: several days 2. Feeling down, depressed, or hopeless: several days 3. Trouble falling or staying asleep, or sleeping too much: not at all 4. Feeling tired or having little energy: several days 5. Poor appetite or overeating: not at all 6. Feeling bad about yourself - or that you are a failure or have let yourself and your family down: several days 7. Trouble concentrating on things, such as reading the newspaper or watching television: not at all 8. Moving or speaking so slowly that other people could have noticed? - Or the opposite - being so fidgety or restless that you have been moving around a lot more than usual: not at all 9. Thoughts that you would be better off or of hurting yourself in some way: several days Total score: 5 Source: Developed by Drs. Erick Olson, Carlotta Rios, Taras Castillo and colleagues, with an educational ricardo from [employer]. Suicide Severity Rate CSSRS Have you wished you were or wished you could go to sleep and not wake up?: Yes Have you actually had any thoughts of killing yourself?: Yes CSSRS2 Have you been thinking about how you might do this?: No Have you had these thoughts and had some intention of acting on them?: No Have you started to work out or worked out the details of how to kill yourself? 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 Access to means: No. Risk: Low Risk Duty to warn indicated: No Asssessment/Mental Status Appearance: Other (paper scrubs) Attitude: Cooperative and Friendly Behavior: Unremarkable Speech: Normal Affect: Cogruent with mood Mood: Sad and Anxious Thought process: Goal directed and Circumstational Hallucinations: yes, Command Delusions: No Attention: Unremarkable Perception: Not impaired Orientation: Fully orientated Memory: Intact Insight: Poor Judgement: Poor Neurovegetative Symptoms Appetitie: Increase Interests: No change Energy: Decrease Libido: Not applicable Substance Use: Other (none) Drug Issues: Other (none) Do you use nicotine?: Yes Have you used substances in the last 7 days?: No Additional Issues: Assaultive/Threatening Behavior: No Medical Concerns: Yes Client engaged in active self harm w/weapon: No Threatening to run away: No Child reported abuse/neglect: No Voluntarily presenting for services: Yes Domestic violence is a concern: No Extreme Psychosis or extreme behavior is present: No Impression very intelligent understanding of her ailments particularly her physical/mental well being. She suffers from chronic SI at random. She needs to take her prescriptions as prescribed as she does not at this point as she feels they don't work for her. Resources [facility] reviewed and given:: 988 and [facility] Plan/Disposition Recommended Disposition: Crisis bed, (Care bed) No. Plan: She will be going to the Car bed at 4pm and will be picked up by Care bed staff. Person reported agreement to plan: Yes Reports/communication Outcome discussed with: ED/Personnel
--- NOTE | 2024-11-07 15:46 | NUR.NOTE ---
Nursing Note: @[id number] Patient reported to me she felt the care bed is not a good fit for her, when asked to elaborate patient reports she does not feel it is safe for her as she is having active suicidal ideation & expresses wanting to strangle herself with her bed sheet. & RN notified. KERRIE Parada
[2024-11-07] MEDS: Acetaminophen 325 MG TAB 650 MG PO (17:14)
--- NOTE | 2024-11-07 17:33 | CMSP_ITS ---
Date of service: 11/07/24 Time of Service: 17:34 Care Management Safety Plan Status Status: Voluntary Reason for Wait Reason for Wait: Inpatient Admission Safety Plan Safety Plan: VOLUNTARY FOR INPATIENT PSYCHIATRIC STABILIZATION.? Patient is appropriate in all interactions since arriving at [facility]; Pt has demonstrated appropriate coping and communication skills, has articulated his or her needs and concerns and is fully engaged during staff interactions. Safety plan has been established with patient, and care team, to adhere to patient goals, identify restrictions based on behavioral status, address nutrition, and determine allowed personal belongings, tools for hygiene and personal care. Determine level of activity including ambulation, level of superv ision, visitors, and determine privileges based on behaviors and level of engagement by pt. VOLUNTARY SAFETY PLAN: 1. Will remain on suicide precautions, in paper clothes 2. Will remain in Zone B under direct supervision of one-on-one staff at all times provided by [employer]; CASIE, LATEX FOAM WORKER salesperson floor coverings. 3. May have paper cups, plates, finger foods as well as a cardboard spoon with which to eat meals. 4. Follow [facility] Management of the Admitted Behavioral Health Patient policy. 5. Shower available in Zone B without restriction. 6. Personal belongings-soft items permitted at RN discretion. 7. Visitors- supportive visitors, at RN discretion. 8. Activities: soft cart items, hospital tablets (Netflix/Borger+/music) approved per RN discretion. 9.? Bathroom available in Zone B without restriction. 10. Phone: limited to [facility] cordless phone at RN discretion. Due to VOLUNTARY status, if patient wishes to leave [facility], staff will contact [facility] Crisis Screener ([phone]) and Wheelabrator Operator ([phone]) as soon as possible. In the event of elopement, notify [facility] Police ([phone]). Patient is currently voluntarily at [facility] and seeking inpatient admission when a bed becomes available. [facility] Frontline Planting Machine Crewman will continue seeking placement. Please contact the Wheelabrator Operator ([phone]) and [facility] Planting Machine Crewman ([phone]) for any needed changes in the Safety Plan. Safety plan has been provided to interdepartmental care team.
--- NOTE | 2024-11-07 17:33 | PDOC.CMSAFE ---
Date of service: 11/07/24 Time of Service: 17:34 Care Management Safety Plan Status Status: Voluntary Reason for Wait Reason for Wait: Inpatient Admission Safety Plan Safety Plan: VOLUNTARY FOR INPATIENT PSYCHIATRIC STABILIZATION.? Patient is appropriate in all interactions since arriving at [facility]; Pt has demonstrated appropriate coping and communication skills, has articulated his or her needs and concerns and is fully engaged during staff interactions. Safety plan has been established with patient, and care team, to adhere to patient goals, identify restrictions based on behavioral status, address nutrition, and determine allowed personal belongings, tools for hygiene and personal care. Determine level of activity including ambulation, level of supervision, visitors, and determine privileges based on behaviors and level of engagement by pt. VOLUNTARY SAFETY PLAN: 1. Will remain on suicide precautions, in paper clothes 2. Will remain in Zone B under direct supervision of one-on-one staff at all times provided by [employer]; CASIE, TEST CLERK mail censor. 3. May have paper cups, plates, finger foods as well as a cardboard spoon with which to eat meals. 4. Follow [facility] Management of the Admitted Behavioral Health Patient policy. 5. Shower available in Zone B without restriction. 6. Personal belongings-soft items permitted at RN discretion. 7. Visitors- supportive visitors, at RN discretion. 8. Activities: soft cart items, hospital tablets (Netflix/[place]+/music) approved per RN discretion. 9.? Bathroom available in Zone B without restriction. 10. Phone: limited to [facility] cordless phone at RN discretion. Due to VOLUNTARY status, if patient wishes to leave [facility], staff will contact [facility] Crisis Screener ([phone]) and Investment Broker ([phone]) as soon as possible. In the event of elopement, notify [facility] Police ([phone]). Patient is currently voluntarily at [facility] and seeking inpatient admission when a bed becomes available. [facility] Frontline Etl Programmer will continue seeking placement. Please contact the Investment Broker ([phone]) and [facility] Etl Programmer ([phone]) for any needed changes in the Safety Plan. Safety plan has been provided to interdepartmental care team.
--- NOTE | 2024-11-07 17:35 | CMPROGNOTE_ITS ---
Date of service: 11/07/24 Time of Service: 17:35 Care Management Progress Note Progress Note Text Progress Note Text: CM met with ED staff to discuss Christy's plan of care. Per report, she was assessed by [facility] and it was determined that she would be discharged to the community and admit to the [facility] Care Bed this afternoon. 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 Shortly before she was intended to discharge, she made statements about not feeling safe going to the care bed, and reported that she would hang herself by a bed sheet if she goes there. Her discharge was cancelled and she was reassessed by [facility]. She is agreeable to remaining at [facility] voluntarily while [facility] seeks inpatient psychiatric treatment. Referrals were sent to facilities by [facility]. Safety plan in place. CM will continue to follow. Social Determinants of Health Screening Social Determinants of health last assessed in clinic: 11/07/24 Will the Patient Participate in the Screening?: Yes Do you worry about having a steady place to live?: no Problems where you live: no known problems In the past 12 months, have you had to go without electric, gas, oil or water in your home?: no 1. Within the past 12 months, we worried whether our food would run out before we got money to buy more.: Don't know/refused 2. Within the past 12 months, the food we bought just didn't last and we didn't have money to get more.: Don't know/refused Has lack of transportation kept you from medical appointments or from doing things needed for daily living?: no Has anyone in your life made you feel unsafe or unsupported?: no How hard is it for you to pay for the very basics like food, housing, medical care, and heating? Would you say it is:: Not hard at all Do you want help finding or keeping work or a job?: I do not need or want help If for any reason you need help with day-to-day activities such as bathing, preparing meals, shopping, managing finances, etc., do you get the help you need?: I don?t need any help How often do you feel lonely or isolated from those around you?: Never Do you speak a language other than Marshallese at home?: No Does the patient want assistance with any of the above?: No
--- NOTE | 2024-11-07 18:39 | PDOC.MHPN2 ---
Date of service: 11/07/24 Time of Service: 16:30 Mental Health Emergency Note Release [facility] release signed:: Yes Reason for Visit Christy is currently at [facility] and had a plan with [facility] Parcell to be discharged to the Care Bed but no longer feels safe using this plan. 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 (Client has a plan to strangle herself with a 7/10 intent rate) Intent: yes, has intent. Plan: yes,has a plan. History of suicide attempt: No history of suicide attempt reported Risk: Does risk to harm exist?: No Risk: N/A Duty to warn indicated: No Asssessment/Mental Status Appearance: Disheveled Attitude: Passive Behavior: Agitated Speech: Normal Affect: Cogruent with mood Mood: Sad and Stressed Thought process: Goal directed Hallucinations: yes, Auditory Delusions: No evidence Attention: Unremarkable Perception: Not impaired Orientation: Fully orientated Memory: Intact Insight: Poor Judgement: Poor Neurovegetative Symptoms Sleep: No change Appetitie: No change Interests: No change Energy: No change Libido: Not applicable Substance Use: Do you use nicotine?: No Have you used substances in the last 7 days?: No Additional Issues: Assaultive/Threatening Behavior: No Medical Concerns: No Client engaged in active self harm w/weapon: No Threatening to run away: No Child reported abuse/neglect: No Voluntarily presenting for services: Yes Domestic violence is a concern: No Extreme Psychosis or extreme behavior is present: No Impression This real estate underwriter and ES Technology Applications Teacher Rahul Peterson were asked to talk to Christy as she was at the ED and made a plan with [facility] to be discharged form the ED and admit to the [facility] Carebed but she was no longer in agreeable with this plan. When this real estate underwriter and ES Technology Applications Teacher Rahul Peterson talked to her, Christy reports she does not feel safe. She does not think the Care Bed is a safe option due to how intense the voices are and what they are telling her to do. Christy reports that the voices are telling her to harm herself and she is afraid to go to the Care Bed and attempt as she knows she has more access at the Care Bed then she does in the ED. Christy reports she has never been to the Care Bed and does not think now is the time for her to go. Christy reports she thinks she needs to go back to treatment as she left treatment one month ago and she thinks she left too early. Christy is not currently willing to explore least restrictive options and is rating herself a 7/10 with intent and plan. Christy will remain at [facility] until she can be placed. Resources [facility] reviewed and given:: Crisis Bed Plan/Disposition Recommended Disposition: Hospitalization (Referrals will be sent to , [facility], [facility], [facility], and [facility]) facilities contacted. Plan: Christy will remain at [facility] until voluntary treatment can be secured or a least restrictive option can be explored. Christy will continue to be seen by [facility] once a day until placed and can call [facility] via phone as needed. Person reported agreement to plan: Yes Reports/communication Outcome discussed with: ED/Personnel
[2024-11-07] MEDS: Polyethylene Glycol 3350 17 GM PACKET PO (21:58)
--- NOTE | 2024-11-08 06:21 | ED.PROG_ITS ---
Date of service: 11/08/24 Time of Service: 06:21 Medical Decision Making Patient stable throughout the night. No interventions needed. Pending placement. Quality:SDOH Health Related Social Needs: Health related social needs problems related to housin g/economic circumstances (Z59.89), problems with daily activities (Z73.9), feeling lonely/isolated (Z60.8) Discharge Plan Disposition Condition: Stable Discharge Details Chief Complaint: PsychEval Clinical Impression: Depression Primary Care Provider: [facility] ED Provider: Brandt Smith Home Meds and New Rx's Prescriptions: Continued azathioprine 50 mg tablet 200 mg PO DAILY hydroxychloroquine 200 mg tablet 200 mg PO DAILY No Action amlodipine 5 mg tablet 5 mg PO DAILY Patient Comments: TAKE ONE TABLET BY MOUTH EVERY DAY irbesartan 300 mg tablet 300 mg PO DAILY Patient Comments: TAKE ONE TABLET BY MOUTH EVERY DAY Discharge Instructions Additional Instructions: Follow-up with your primary care provider and mental health providers. Continue to take your prescribed medications. If you feel more ill or have worsening thoughts of self-harm return to the emergency department for reevaluation.
[2024-11-08 08:00] VITALS: BP 118/83; PULSE 71; RESP 22; TEMP 36.2; O2SAT 97
[2024-11-08] MEDS: Omeprazole 20 MG CAPCR PO (08:10)
[2024-11-08] MEDS: azaTHIOprine 50 MG TAB 200 MG PO (08:38)
[2024-11-08] MEDS: amLODIPine 5 MG TAB PO (08:38)
[2024-11-08] MEDS: Hydroxychloroquine 200 MG TAB PO (08:39)
[2024-11-08] MEDS: Nicotine 4 MG GUM CH ×2 (08:59→15:04)
--- NOTE | 2024-11-08 13:37 | ED.PROG_ITS ---
Date of service: 11/08/24 Time of Service: 13:38 Medical Decision Making Care signed out by Dr. Smith, please see his documentation regarding prior ED course. Patient was noted to be medically cleared prior to signout, here voluntarily awaiting psychiatric treatment facility placement for suicidality. I received call from [facility] [place] [facility] and spoke with nurse practitioner Florida Simms, discussed ED course, she will except the patient in transfer. Quality:SDOH Health Related Social Needs: Health related social needs problems related to housin g/economic circumstances (Z59.89), problems with daily activities (Z73.9), feeling lonely/isolated (Z60.8) Discharge Plan Disposition Patient Disposition: Psychiatric Hospital/Unit Specific Psychiatric Facility: [facility] Condition: Stable Discharge Details Chief Complaint: PsychEval Clinical Impression: Depression, Suicidal ideation Primary Care Provider: [facility] [facility] ED Provider: Bravo Guzman Home Meds and New Rx's Prescriptions: Continued azathioprine 50 mg tablet 200 mg PO DAILY hydroxychloroquine 200 mg tablet 200 mg PO DAILY No Action amlodipine 5 mg tablet 5 mg PO DAILY Patient Comments: TAKE ONE TABLET BY MOUTH EVERY DAY irbesartan 300 mg tablet 300 mg PO DAILY Patient Comments: TAKE ONE TABLET BY MOUTH EVERY DAY Discharge Instructions Additional Instructions: Follow-up with your primary care provider and mental health providers. Continue to take your prescribed medications. If you feel more ill or have worsening thoughts of self-harm return to the emergency department for reevaluation.
--- NOTE | 2024-11-08 13:37 | MHPN_ITS ---
Date of service: 11/08/24 Time of Service: 13:37 Mental Health Emergency Note Release [facility] release signed:: Yes Reason for Visit The client is known to [facility], but not this clinician. Per client report the client has been psychiatrically hospitalized multiple times since she was 16 years old. The client states the last time she was hospitalized was last month at [facility]. The client was assessed earlier in the day to be transitioned to the CARE Bed however, changed her mind as she did not feel safe in doing that. This assessment is completed face to face at bedside. In the last 2 weeks has the pt presented for ES prior to today?: Unknown Impression Client is a 24-year-old, bi-sexual, single female. Client lives alone in [place], [place]. She reports having no children. Client reports she was born in [place], [place] and has three sisters. Client reports her mother in 2018 and her father is still living. Client reports that she has been in and out of inpatient since I was 16. All underrepresented identifiers were honored during this assessment. The client presents lying in bed sitting partially up, watching TV. She acknow ledges this clinician's presence. She does not make eye contact and has a flat affect. She reported auditory hallucinations during the assessment however, identifiable observations to show that were not observed by this clinician. She reported poor sleep thinking that this was related to her Gerd. She reported that she has no appetite but did eat breakfast. Plan/Disposition Recommended Disposition: Hospitalization facilities contacted. Plan: The client will remain at [facility] and be assessed daily until placed. Person reported agreement to plan: Yes Reports/communication Outcome discussed with: ED/Personnel
[2024-11-08] MEDS: Acetaminophen 325 MG TAB 650 MG PO (17:05)
== END 2024-11-08 17:21 ==
PROVIDERS: Emergency Medicine; Emergency Provider Student in an Organized Health Care Education/Training Program; PCP Family Medicine
DX: F32.A Depression, unspecified (principal); R44.0 Auditory hallucinations; R44.1 Visual hallucinations; M32.9 Systemic lupus erythematosus, unspecified; E28.2 Polycystic ovarian syndrome; F17.210 Nicotine dependence, cigarettes, uncomplicated
CPT/HCPCS: 00123; 36415; 80053; 80307; 81025; 96127; 99285; 80320; 80329; 81003; 81015; 84443; 85025; J7500

== ENCOUNTER 2024-12-28 11:30 | Emergency (ER) | payer MEDICARE, MEDICAID, SELFPAY ==
[2024-12-28 11:31] VITALS: BP 142/104; PULSE 77; RESP 20; TEMP 36; O2SAT 97
[2024-12-28 11:41] VITALS: BP 142/104; PULSE 77; RESP 20; TEMP 36; O2SAT 97
--- NOTE | 2024-12-28 11:45 | DI.CT_ITS ---
Exam(s) CT ABDOMEN PELVIS W EXAM: CT ABDOMEN PELVIS W CLINICAL HISTORY: lower abdominal pain TECHNIQUE: Imaging Protocol: Axial computed tomography images with coronal and sagittal reformatted images were created and reviewed. CONTRAST MATERIAL: Intravenous: Omnipaque 350 Contrast volume:100 mL Oral: No COMPARISON: No exams were available for comparison FINDINGS: ABDOMEN: Lung Bases: Note is made of a prominent hemiazygos vein which is a normal variant. Liver: Normal density. No measurable mass. Portal, Superior Mesenteric, and Splenic Veins: Unremarkable. Gallbladder and Biliary Tract: No radiodense calculus or dilation. Pancreas: Normal density, no abnormal calcifications or inflammatory process. Spleen: Normal. Adrenals: No masses seen. Kidneys: Normal size, contour and axis. No radiodense stones or obstructive uropathy. No masses seen. Abdominal Aorta: Abdominal portion non-dilated. Bowel: No obstruction or bowel wall thickening. Appendix is unremarkable. Peritoneal Cavity: No ascites, collection or mesenteric inflammatory response. No free air. Lymph Nodes: Within normal limits. Bones: Within normal limits for the patient's age. Soft Tissues: Unremarkable. PELVIS: Bladder: Symmetric distention, no gross wall thickening. Reproductive Organs: There is an IUD which appears in good position. Lymph Nodes: Within normal limits. Bones: Within normal limits for the patient's age. IMPRESSION: No acute abdominal or pelvic process. RADIATION DOSE DELIVERED: 1,374.69mGy.cm Total DLP DATA REPOSITORY: All CT scans at this facility are submitted to the National Radiology Data Registry (NRDR) Dose Index Registry (DIR) with the [employer] (ACR). RADIATION OPTIMIZATION: All CT scans at this facility use at least one of these dose optimization te chniques: automated exposure control; mA and/or kV adjustment per patient size (includes targeted exa ms where dose is matched to clinical indication); or iterative reconstruction.
--- NOTE | 2024-12-28 11:59 | ED.GENADUL_ITS ---
Discharge Plan Disposition Patient Disposition: Home Condition: Stable Discharge Details Clinical Impression: Abdominal pain Primary Care Provider: [facility] ED Provider: Clifford Ugalde Home Meds and New Rx's Prescriptions: Continued azathioprine 50 mg tablet 200 mg PO DAILY hydroxychloroquine 200 mg tablet 200 mg PO DAILY amlodipine 5 mg tablet 5 mg PO DAILY Patient Comments: TAKE ONE TABLET BY MOUTH EVERY DAY irbesartan 300 mg tablet 150 mg PO DAILY Patient Comments: TAKE ONE TABLET BY MOUTH EVERY DAY Discharge Instructions Additional Instructions: Your blood work and CAT scan did not show any concerning findings at this time. Follow-up with either your primary care provider or express care if not improving within a week. If you feel significantly more ill or have severe w orsening pain return to the emergency department for reevaluation. HPI General Mode of arrival: ambulatory . Date/Time Provider Initiated Documentation: 12/28/24 11:37 . Limitations to Documentation: no limitations . Information obtained by: patient . History of Present Illness 24 year old F presents to the emergency department with the chief complaint of abdominal pain, described as moderate, Quality is described as stabbing and aching, Patient abdomen. and it has been constant. No relieving factors improve symptom(s), No exacerbating factors reported . Patient notes no other symptoms.. Patient did receive the following treatments prior to arrival, none Related Data Home Medications ?Medication ?Instructions ?Recorded ?Confirmed azathioprine 50 mg tablet 200 mg PO DAILY 06/08/24 12/28/24 hydroxychloroquine 200 mg tablet 200 mg PO DAILY 06/08/24 12/28/24 amlodipine 5 mg tablet 5 mg PO DAILY 11/07/24 12/28/24 irbesartan 300 mg tablet 150 mg PO DAILY 11/07/24 12/28/24 Allergies Allergy/AdvReac Type Severity Reaction Status Date / Time Penicillins Allergy Intermediate Skin Rash Verified 12/28/24 11:34 aripiprazole (From Abilify) Allergy Mild Unknown Verified 12/28/24 11:37 bupropion Allergy Mild Unknown Verified 12/28/24 11:37 cephalexin (From Keflex) Allergy Mild Unknown Verified 12/28/24 11:37 ibuprofen Allergy Mild Unknown Verified 12/28/24 11:37 risperidone Allergy Mild Unknown Verified 12/28/24 11:37 soap Allergy Mild Hives Verified 12/28/24 11:37 quetiapine (From Seroquel) AdvReac Unknown Unknown Verified 12/28/24 11:34 General Stated Complaint: Abd Prob DIAMOND: 3 Review of Systems All systems reviewed & are unremarkable except as noted in HPI and below Constitutional Constitutional: Denies chills, Denies fever(s) and Denies weakness Cardiovascular Cardiovascular: Denies chest pain and Denies dyspnea Respiratory Respiratory: Denies cough and Denies dyspnea Gastrointestinal Gastrointestinal: Reports abdominal pain, Reports nausea and Denies vomiting Neurologic Neurologic: Denies weakness Psychiatric Psychiatric: Denies depression Exam Const General: no acute distress Orientation: alert HENMT Head: normal to inspection Ears: external ears normal General nose exam: external nose normal Mouth: moist mucous membranes Eyes General: appearance normal, both eyes and all related structures Neck Neck: normal visual inspection Resp Effort & Inspection: normal respiratory effort and able to speak in complete sentences Cardio Rate: regular rate GI Palpation: soft and tender Skin General skin exam: no rashes or lesions noted Neuro General: patient alert and patient oriented x3 Extrem General: normal to inspection Psych Mental Status: mental status grossly normal Course Vital Signs Vital signs: Vital Signs Temperature 36.0 C L 12/28/24 11:31 Pulse 77 12/28/24 11:31 Respiratory Rate 20 12/28/24 11:31 Blood Pressure 142/104 H 12/28/24 11:31 Pulse Oximetry 97 12/28/24 11:31 Temperature 36.0 C L 12/28/24 11:41 Temperature Source Tympanic 12/28/24 11:41 Pulse 77 12/28/24 11:41 Respiratory Rate 20 12/28/24 11:41 Blood Pressure 142/104 H 12/28/24 11:41 Blood Pressure Position Sitting 12/28/24 11:41 Pulse Oximetry 97 12/28/24 11:41 Oxygen Delivery Method Room Air 12/28/24 11:41 Oxygen Flow Rate 0 12/28/24 11:41 Pain Level 8 12/28/24 11:41 Medical Decision Making 24-year-old female comes in with several days of lower abdominal pain and nausea. Denies any vomiting or fevers. No vaginal bleeding or discharge. She is stable on arrival. Her abdomen is nondistended. She has tenderness in the left lower right lower quadrant without any guarding or rebound. There is been several days and not improving and we will proceed with CBC, CMP and lipase along with CT abdomen pelvis to evaluate for appendicitis versus diverticulitis. Labs and imaging show no significant emergent findings. Patient is stable, has minimal left lower quadrant tenderness. Given reassuring workup I feel she is stable for discharge to follow-up with her PCP or express care if not improving this week and return precautions given Quality:SDOH Health Related Social Needs: Health related social needs problems related to housin g/economic circumstances (Z59.89), problems with daily activities (Z73.9), feeling lonely/isolated (Z60.8) PFSH All Active Problems (Updated 12/28/24 @ 14:17 by Clifford Ugalde MD) Abdominal pain (Acute) Social History Smoking/Tobacco Use Status: Former Tobacco Use Smoking risk assessment performed?: Yes Alcohol Intake: former Drug use: Never Substance use type: does not use Housing: apartment Do you feel safe at home: Yes Do you feel safe in your relationship?: Yes Additional Social history: fianc? currently incarcerated
[2024-12-28 12:19] LABS: Abs Immature Grans 0.01 10^3/uL (0.0-0.06); Absolute Basophil Count 0.02 10^3/uL (0.0-0.2); Absolute Lymphocyte Count 1.34 10^3/uL (1.2-3.4); Absolute Monocyte Count 0.49 10^3/uL (0.1-0.8); Absolute Neutrophil Count 3.91 10^3/uL (1.2-6.7); Basophils % 0.3 %; Eosinophils % 1.7 %; HCT 46.4 % (36.0-46.0); HGB 15.7 g/dL (11.2-15.7); Immature Grans % 0.2 %; Lymphocytes % 22.8 %; MCH 29.8 pg (27.0-33.0); MCHC 33.8 % (32.0-36.0); MCV 88 fL (80-95); MPV 9.4 fL (8.0-11.0); Monocytes % 8.3 %; Neutrophils % 66.7 %; Platelet Count 251 10^3/uL (130-400); RBC 5.27 10^6/uL (3.93-5.22); RDW 12.7 % (11.7-14.6); WBC 5.87 10^3/uL (4.4-10.8)
[2024-12-28 12:33] LABS: Bilirubin Negative (Negative); Blood Trace-intact (Negative); Clarity Clear (Clear); Glucose Negative (Negative); Ketones Negative (Negative); Leukocyte Esterase Negative (Negative); Nitrite Negative (Negative); Specific Gravity 1.025 (1.005-1.025); Urobilinogen 0.2 mg/dL (Up to 0.2); pH 5.5 (5-8)
[2024-12-28 12:41] LABS: Bacteria Few HPF (Negative); C & S Indicated? No; Casts Negative LPF (Negative); Crystals Negative HPF (Negative); Epithelial Cells Few HPF (Negative); Mucus Negative (Negative); RBC 0-2 HPF (0-2); WBC 0-2 HPF (0-5)
[2024-12-28 12:41] LABS: ALT 35 U/L (14-59); AST 25 U/L (15-37); Albumin 3.2 g/dL (3.4-5.0); Alkaline Phosphatase 88 U/L (46-116); Anion Gap 5.1 mmol/L (3-11); BUN 17 mg/dL (7-18); Bilirubin, Direct 0.2 mg/dL (0.0-0.2); CO2 29.9 mmol/L (21.0-32.0); CREATININE 1.3 mg/dL (0.55-1.02); Calcium 8.9 mg/dL (8.5-10.1); Chloride 106 mmol/L (98-107); Estimated GFR 58.16 (mL/min/1.73m2); Glucose 96 mg/dL (74-106); Lipase 31 U/L (<78); Magnesium 1.6 mg/dL (1.8-2.4); Potassium 4.3 mmol/L (3.5-5.1); Sodium 141 mmol/L (136-145); Total Protein 7.6 g/dL (6.4-8.2)
[2024-12-28] MEDS: Normal Saline - Diluent 50 ML VIAL IJ (12:43)
[2024-12-28] MEDS: Omnipaque 350 MG/ML 100 ML BTL IJ (12:44)
[2024-12-28 12:58] VITALS: BP 131/84; PULSE 75; RESP 18; O2SAT 100
[2024-12-28] MEDS: Normal Saline 1,000 ML 1000 ML IV (12:58)
[2024-12-28 14:39] VITALS: BP 159/104; PULSE 65; RESP 18; O2SAT 94
--- NOTE | 2024-12-28 15:53 | NUR.NOTE ---
Patient's supercharger repair supervisor found in room after she left. Patient called and stated if she can get a ride she will come to get it. Appeals Referee left at the [employer] [facility] to be picked up. Nursing Note:
== END 2024-12-28 14:40 | disposition home or self-care (01) ==
PROVIDERS: Emergency Provider Emergency Medicine; PCP Family Medicine
DX: R10.84 Generalized abdominal pain (principal); R11.0 Nausea; Z97.5 Presence of (intrauterine) contraceptive device; Z87.891 Personal history of nicotine dependence
CPT/HCPCS: 36415; 80053; 81025; 83690; 96361; 96374; 99285; 74177; 81003; 81015; 82248; 83735; 85025; J3490